=== PATIENT | female | born 1990 | race Caucasian/White ===

== ENCOUNTER 2021-05-29 14:21 | Outpatient (CLI) | payer SELFPAY ==
--- NOTE | 2021-05-29 14:29 | MM_ITS ---
WS: [id number] DIAGNOSTIC BILATERAL DIGITAL MAMMOGRAM WITH CAD LEFT breast ultrasound, limited HISTORY: HX OF DIMPLING OF BREAST SKIN COMPARISON: None available. TECHNIQUE: Bilateral craniocaudad, mediolateral oblique, and mediolateral views are submitted. RIGHT CC and MLO spot. Computer aided detection utilized. Breast composition: There are scattered areas of fibroglandular density. No persistent soft tissue ab normality. There is no distortion or soft tissue thickening or trabecular thickening. No nipple retra ction. LEFT breast ultrasound, limited. Ultrasound is directed to the areas of clinical concern as indicated by the patient. At 9:00 normal s oft tissue. No skin thickening. At 1:00 and 3:00 there is no abnormality in the soft tissues. MM/[place] [id number] IMPRESSION: BI-RADS: 2-Benign FOLLOW UP: Age 39 By imaging no abnormality is noted within the LEFT breast.
--- NOTE | 2021-05-29 15:23 | US_ITS ---
WS: [id number] DIAGNOSTIC BILATERAL DIGITAL MAMMOGRAM WITH CAD LEFT breast ultrasound, limited HISTORY: HX OF DIMPLING OF BREAST SKIN COMPARISON: None available. TECHNIQUE: Bilateral craniocaudad, mediolateral oblique, and mediolateral views are submitted. RIGHT CC and MLO spot. Computer aided detection utilized. Breast composition: There are scattered areas of fibroglandular density. No persistent soft tissue ab normality. There is no distortion or soft tissue thickening or trabecular thickening. No nipple retra ction. LEFT breast ultrasound, limited. Ultrasound is directed to the areas of clinical concern as indicated by the patient. At 9:00 normal s oft tissue. No skin thickening. At 1:00 and 3:00 there is no abnormality in the soft tissues. US/US breast LT limited* [id number] IMPRESSION: BI-RADS: 2-Benign FOLLOW UP: Age 39 By imaging no abnormality is noted within the LEFT breast.
== END 2021-05-29 14:22 | disposition home or self-care (01) ==
LOC: RADSHAW 14:25
PROVIDERS: PCP Family Medicine; Visit Provider Family Medicine
DX: Z87.2 Personal history of diseases of the skin and subcutaneous tissue (principal)
CPT/HCPCS: 76642; 77066

== ENCOUNTER → 2022-09-08 19:10 | Outpatient (BNVA) | payer SELFPAY | PROVIDERS: PCP Family Medicine; Visit Provider Registered Nurse Neonatal Intensive Care | DX: R39.9 Unspecified symptoms and signs involving the genitourinary system (principal) | CPT/HCPCS: 81000; 87086 ==

== ENCOUNTER → 2024-02-22 16:33 | Outpatient (BNVA) | payer MEDICAID, SELFPAY | PROVIDERS: PCP Family Medicine; Visit Provider Registered Nurse Neonatal Intensive Care | DX: M79.671 Pain in right foot (principal) | CPT/HCPCS: 73630 ==

== ENCOUNTER 2024-06-04 15:26 | Emergency (ER) | payer MEDICAID, SELFPAY ==
[2024-06-04 15:44] VITALS: BP 152/94; PULSE 89; RESP 16; TEMP 36.7; O2SAT 98; BMI 39.2
--- NOTE | 2024-06-04 16:29 | USR_ITS ---
PROCEDURE INFORMATION: Exam: US Abdomen, Limited; Right Upper Quadrant Exam date and time: 06/04/2024 4:37 PM Age: 33 years old Clinical indication: Abdominal pain; Additional info: Intermittent sharp ruq pain TECHNIQUE: Imaging protocol: Real time ultrasound of the abdomen with image documentation. Limited exam focused on the right upper quadrant. COMPARISON: No relevant prior studies available. FINDINGS: Liver: Hepatomegaly with the liver measuring up to 21 cm. Increased echogenicity of the liver which can be seen in the setting of diffuse hepatocellular disease most commonly hepatic steatosis. Gallbladder: There is a small nonmobile echogenic foci with broad-base along the gallbladder wall which may be related to a small gallbladder polyp measuring 3 mm. Based on guidelines this will require no further follow up. No mobile gallstones or gallbladder wall thickening or pericholecystic fluid. Biliary ducts: Normal. No stones. No dilation. Pancreas: Visualized pancreas is unremarkable. Right kidney: Normal. No mass. No hydronephrosis. US/US abdomen limited [id number] IMPRESSION: As above.
--- NOTE | 2024-06-04 16:30 | ED_ITS ---
Documented by User: SILVINA Riddle STDNT 06/05/24 12:50 HPI - Abdominal Pain 2 General: Chief Complaint: Abdominal Pain Stated Complaint: right side pain ribs to hips Time Seen by Provider: 06/04/24 16:06 History of Present Illness: Xenia is a 33-year-old female with past medical history of hypertension presenting today for 2 weeks of constant right upper quadrant pain that becomes significantly worse with meals. Has also been experiencing sensation of tightness and pressure in the right upper quadrant that radiates into the right lower quadrant. The pain and discomfort worsen with bowel movements. Denies fevers, chills. Has been having waves of nausea but no vomiting. PCP started Protonix several days ago which has not helped with the pain that seems to be helping with diarrhea. History of tubal, hysterectomy for heavy menstrual bleeding. Associated Symptoms: Denies chills, coffee ground emesis, fever(s) and hematemesis Related Data Home Medications Medication Instructions Recorded Confirmed fluoxetine 20 mg capsule 20 mg PO DAILY 06/04/24 06/04/24 hydrochlorothiazide 12.5 mg capsule 12.5 mg PO DAILY 06/04/24 06/04/24 metoprolol succinate 25 mg 25 mg PO DAILY 06/04/24 06/04/24 tablet,extended release 24 hr omeprazole 20 mg capsule,delayed 20 mg PO DAILY 06/04/24 06/04/24 release pantoprazole 40 mg tablet,delayed 40 mg PO BID 06/04/24 06/04/24 release Previous Rx's Medication Instructions Recorded ondansetron 4 mg disintegrating 4 mg PO Q8H PRN nausea and 06/04/24 tablet vomiting #10 tabs sucralfate 1 gram tablet (Carafate) 1 g PO TID 4 weeks #84 tabs 06/04/24 tramadol 50 mg tablet 50 mg PO Q8H PRN pain #10 tabs 06/04/24 Allergies Allergy/AdvReac Type Severity Reaction Status Date / Time metronidazole Allergy ALGY-Anaphy Verified 06/04/24 15:50 laxis Review of Systems 2 Const: Denies: fever(s) or chills Resp: Denies: dyspnea GI: Reports: abdominal pain; Denies: hematemesis or coffee ground emesis PFSH ED 2 PFSH: Social History Smoking and tobacco/nicotine status: never used tobacco/nicotine Physical Exam 2 Const: COMMON NORMALS: no acute distress GENERAL APPEARANCE: cooperative and comfortable HENMT: COMMON NORMALS: normocephalic and atraumatic HEAD & SCALP: n ormocephalic and atraumatic Cardio: COMMON NORMALS: regular rate and regular rhythm RATE: regular rate RHYTHM: regular rhythm GI: COMMON NORMALS: Normal to inspection, nondistended, normoactive bowel sounds present and Soft to palpation AUSCULTATION: Yes normoactive bowel sounds PALPATION: Yes Soft to palpation, Yes Tenderness to palpation present (GI) (epigastric and RUQ tenderness ) Details: RUQ and No Guarding due to palpation present (GI) Course 2 Vital Signs: Vital signs: Vital Signs Temperature 98.0 F 06/04/24 15:44 Pulse Rate 78 06/04/24 19:28 Respiratory Rate 18 06/04/24 19:28 Blood Pressure 128/79 06/04/24 19:28 Pulse Oximetry 97 06/04/24 19:28 Oxygen Delivery Me thod Room Air 06/04/24 15:44 MDM - Abdominal Pain Medical Decision Making Xenia is a 33-year-old female with past medical history of hypertension presenting today for 2 weeks of constant right upper quadrant pain that worsens after meals. Vitals unremarkable, afebrile. Patient has significant tenderness over epigastrium and RUQ. RUQ U/S Lab Data 06/04/24 16:40 06/04/24 16:40 Labs/Radiology: Radiology Impressions Abdomen Ultrasound 06/04/24 16:29 IMPRESSION: As above. Abdomen/Pelvis CT 06/04/24 16:47 IMPRESSION: No acute findings. Laboratory Results WBC 10.01 10^3/uL (3.29-11.43) 06/04/24 16:40 RBC 4.38 10^6/uL (3.85-5.65) 06/04/24 16:40 Hgb 13.00 g/dL (11.27-16.99) 06/04/24 16:40 Hct 39.5 % (36-47) 06/04/24 16:40 MCV 90.2 fl (85-98) 06/04/24 16:40 MCH 29.7 pg (27-33) 06/04/24 16:40 MCHC 32.9 g/dL (30-55) 06/04/24 16:40 RDW 13.1 % (12.1-15.1) 06/04/24 16:40 Plt Count 289 10^3/cmm (157-399) 06/04/24 16:40 MPV 8.6 fL (7.4-10.4) 06/04/24 16:40 Neut % (Auto) 75.5 % 06/04/24 16:40 Lymph % (Auto) 18.7 % 06/04/24 16:40 [place] % (Auto) 4.2 % 06/04/24 16:40 Eos % (Auto) 1.1 % 06/04/24 16:40 Baso % (Auto) 0.3 % 06/04/24 16:40 Neut # (Auto) 7.56 10^3/uL (1.8-7.7) 06/04/24 16:40 Lymph # (Auto) 1.9 10^3/uL (0.8-4.8) 06/04/24 16:40 [place] # (Auto) 0.4 10^3/uL (0.2-0.9) 06/04/24 16:40 Eos # (Auto) 0.1 10^3/uL (0.0-0.8) 06/04/24 16:40 Baso # (Auto) 0.0 10^3/uL (0.0-0.1) 06/04/24 16:40 Nucleated RBC % (auto) 0 % 06/04/24 16:40 Nucleated RBCs # 0.0 /100WBC 06/04/24 16:40 Sodium 138 mmol/L (136-145) 06/04/24 16:40 Potassium 3.8 mmol/L (3.5-5.1) 06/04/24 16:40 Chloride 103 mmol/L (98-107) 06/04/24 16:40 Carbon Dioxide 23 mmol/L (22-29) 06/04/24 16:40 Anion Gap 15.8 (5-19) 06/04/24 16:40 BUN 14 mg/dL (6-20) 06/04/24 16:40 Creatinine 0.7 mg/dL (0.5-0.9) 06/04/24 16:40 GFR Calculation 95.8 mL/min (90-130) 06/04/24 16:40 Glucose 113 mg/dL (65-115) 06/04/24 16:40 Calculated Osmolality 287 mOsm/kg (285-295) 06/04/24 16:40 Calcium 9.1 mg/dL (8.5-10.5) 06/04/24 16:40 Total Bilirubin 0.2 mg/dL (0.15-1.2) 06/04/24 16:40 AST 13 U/L (0-32) 06/04/24 16:40 ALT 15 U/L (0-33) 06/04/24 16:40 Alkaline Phosphatase 93 U/L (35-105) 06/04/24 16:40 Total Protein 7.2 g/dL (6.6-8.7) 06/04/24 16:40 Albumin 4.2 g/dL (3.5-5.2) 06/04/24 16:40 Globulin 3.0 g/dL (1.3-4.6) 06/04/24 16:40 Lipase 27 U/L (13-60) 06/04/24 16:40 HCG, Qual Negative (Negative) 06/04/24 16:40 Urine Color Yellow (Yellow) 06/04/24 15:55 Urine Appearance Cloudy (CLEAR) A 06/04/24 15:55 Urine pH 5.5 (5-7) 06/04/24 15:55 Ur Specific [place] 1.027 (1.005-1.030) 06/04/24 15:55 Urine Protein Trace (Negative) A 06/04/24 15:55 Urine Glucose (UA) Negative (Normal) 06/04/24 15:55 Urine Ketones Trace (Negative) 06/04/24 15:55 Urine Blood Negative (Negative) 06/04/24 15:55 Urine Nitrate Negative (Negative) 06/04/24 15:55 Urine Bilirubin Negative (Negative) 06/04/24 15:55 Urine Urobilinogen 0.2 mg/dL (Negative) 06/04/24 15:55 Ur Leukocyte Esterase Negative (Negative) 06/04/24 15:55 Urine RBC 0-2 /hpf (0-2) 06/04/24 15:55 Urine WBC 6-10 /hpf (0-5) 06/04/24 15:55 Ur Squamous Epith Cells 11-20 /hpf (0-5) H 06/04/24 15:55 Amorphous Sediment Not Reportable 06/04/24 15:55 Urine Bacteria 4+ /hpf (NONE) H 06/04/24 15:55 Hyaline Casts 2.46 /lpf 06/04/24 15:55 Discharge Plan Discharge Patient Disposition: Home Clinical Impression: Abdominal pain Condition: Stable Prescriptions: New sucralfate [Carafate] 1 gram tablet 1 g PO TID 28 Days Qty: 84 0RF Rx Instructions: with meals tramadol 50 mg tablet 50 mg PO Q8H PRN (Reason: pain) Qty: 10 0RF ondansetron 4 mg tablet,disintegrating 4 mg PO Q8H PRN (Reason: nausea and vomiting) Qty: 10 0RF No Action pantoprazole 40 mg tablet,delayed release (DR/EC) 40 mg PO BID hydrochlorothiazide 12.5 mg capsule 12.5 mg PO DAILY omeprazole 20 mg capsule,delayed release(DR/EC) 20 mg PO DAILY metoprolol succinate 25 mg tablet extended release 24 hr 25 mg PO DAILY fluoxetine 20 mg capsule 20 mg PO DAILY Discharge Orders: Discharge ED (Routine); Ordered 06/04/24 Ordered By: Charisse Garcia Referrals: Jamal Hanks MD [Primary Care Provider] - Discharge Diet: Advance as tolerated Discharge Activity: Increase activity as tolerated Patient Instructions: Abdominal Pain (ED), Opioid Safety, Pain Management Activity Restrictions/Additional Instructions: Thank you for choosing [facility] for your healthcare needs today. Please realize this is an emergency room and that we are providing you with a medical screening exam and this may not be complete and all inclusive of all the testing and or work up that you may need to determine your ailment or severity of your illness. You have been screened and evaluated and felt safe for discharge. Health conditions do change or evolve sometimes and as such it is important that you follow up with your Primary Doctor to be re checked, 3-5 days is a general good time frame for follow up. You are always welcome to return to the ED for re assessment if your symptoms are worsening or you have new concerns Interventions: ED Discharge Assessment Last Done: 06/04/24 19:28 Discharge Date/Time: 06/04/24 19:29 Coding Level of Care Code ED Drug Abuse Program Coordinator for Chg Fwd Documented by User: Varun Cottrell MD 06/04/24 17:50 HPI - Abdominal Pain 2 General: Chief Complaint: Abdominal Pain Stated Complaint: right side pain ribs to hips Time Seen by Provider: 06/04/24 16:06 Related Data Home Medications Medication Instructions Recorded Confirmed fluoxetine 20 mg capsule 20 mg PO DAILY 06/04/24 06/04/24 hydrochlorothiazide 12.5 mg capsule 12.5 mg PO DAILY 06/04/24 06/04/24 metoprolol succinate 25 mg 25 mg PO DAILY 06/04/24 06/04/24 tablet,extended release 24 hr omeprazole 20 mg capsule,delayed 20 mg PO DAILY 06/04/24 06/04/24 release pantoprazole 40 mg tablet,delayed 40 mg PO BID 06/04/24 06/04/24 release Previous Rx's Medication Instructions Recorded ondansetron 4 mg disintegrating 4 mg PO Q8H PRN nausea and 06/04/24 tablet vomiting #10 tabs sucralfate 1 gram tablet (Carafate) 1 g PO TID 4 weeks #84 tabs 06/04/24 tramadol 50 mg tablet 50 mg PO Q8H PRN pain #10 tabs 06/04/24 Allergies Allergy/AdvReac Type Severity Reaction Status Date / Time metronidazole Allergy ALGY-Anaphy Verified 06/04/24 15:50 laxis PFS ED 2 PFSH: Social History Smoking and tobacco/nicotine status: never used tobacco/nicotine Course 2 Vital Signs: Vital signs: Vital Signs Temperature 98.0 F 06/04/24 15:44 Pulse Rate 78 06/04/24 19:28 Respiratory Rate 18 06/04/24 19:28 Blood Pressure 128/79 06/04/24 19:28 Pulse Oximetry 97 06/04/24 19:28 Oxygen Delivery Me thod Room Air 06/04/24 15:44 MDM - Abdominal Pain Medical Decision Making Xenia is a 33-year-old female with past medical history of hypertension presenting today for 2 weeks of constant right upper quadrant pain that worsens after meals. Vitals unremarkable, afebrile. Patient has significant tenderness over epigastrium and RUQ. RUQ U/S Patient's pending CT scan of her abdomen care turned over to Dr. Arthur Lab Data 06/04/24 16:40 06/04/24 16:40 Labs/Radiology: Radiology Impressions Abdomen Ultrasound 06/04/24 16:29 IMPRESSION: As above. Abdomen/Pelvis CT 06/04/24 16:47 IMPRESSION: No acute findings. Laboratory Results WBC 10.01 10^3/uL (3.29-11.43) 06/04/24 16:40 RBC 4.38 10^6/uL (3.85-5.65) 06/04/24 16:40 Hgb 13.00 g/dL (11.27-16.99) 06/04/24 16:40 Hct 39.5 % (36-47) 06/04/24 16:40 MCV 90.2 fl (85-98) 06/04/24 16:40 MCH 29.7 pg (27-33) 06/04/24 16:40 MCHC 32.9 g/dL (30-55) 06/04/24 16:40 RDW 13.1 % (12.1-15.1) 06/04/24 16:40 Plt Count 289 10^3/cmm (157-399) 06/04/24 16:40 MPV 8.6 fL (7.4-10.4) 06/04/24 16:40 Neut % (Auto) 75.5 % 06/04/24 16:40 Lymph % (Auto) 18.7 % 06/04/24 16:40 [place] % (Auto) 4.2 % 06/04/24 16:40 Eos % (Auto) 1.1 % 06/04/24 16:40 Baso % (Auto) 0.3 % 06/04/24 16:40 Neut # (Auto) 7.56 10^3/uL (1.8-7.7) 06/04/24 16:40 Lymph # (Auto) 1.9 10^3/uL (0.8-4.8) 06/04/24 16:40 [place] # (Auto) 0.4 10^3/uL (0.2-0.9) 06/04/24 16:40 Eos # (Auto) 0.1 10^3/uL (0.0-0.8) 06/04/24 16:40 Baso # (Auto) 0.0 10^3/uL (0.0-0.1) 06/04/24 16:40 Nucleated RBC % (auto) 0 % 06/04/24 16:40 Nucleated RBCs # 0.0 /100WBC 06/04/24 16:40 Sodium 138 mmol/L (136-145) 06/04/24 16:40 Potassium 3.8 mmol/L (3.5-5.1) 06/04/24 16:40 Chloride 103 mmol/L (98-107) 06/04/24 16:40 Carbon Dioxide 23 mmol/L (22-29) 06/04/24 16:40 Anion Gap 15.8 (5-19) 06/04/24 16:40 BUN 14 mg/dL (6-20) 06/04/24 16:40 Creatinine 0.7 mg/dL (0.5-0.9) 06/04/24 16:40 GFR Calculation 95.8 mL/min (90-130) 06/04/24 16:40 Glucose 113 mg/dL (65-115) 06/04/24 16:40 Calculated Osmolality 287 mOsm/kg (285-295) 06/04/24 16:40 Calcium 9.1 mg/dL (8.5-10.5) 06/04/24 16:40 Total Bilirubin 0.2 mg/dL (0.15-1.2) 06/04/24 16:40 AST 13 U/L (0-32) 06/04/24 16:40 ALT 15 U/L (0-33) 06/04/24 16:40 Alkaline Phosphatase 93 U/L (35-105) 06/04/24 16:40 Total Protein 7.2 g/dL (6.6-8.7) 06/04/24 16:40 Albumin 4.2 g/dL (3.5-5.2) 06/04/24 16:40 Globulin 3.0 g/dL (1.3-4.6) 06/04/24 16:40 Lipase 27 U/L (13-60) 06/04/24 16:40 HCG, Qual Negative (Negative) 06/04/24 16:40 Urine Color Yellow (Yellow) 06/04/24 15:55 Urine Appearance Cloudy (CLEAR) A 06/04/24 15:55 Urine pH 5.5 (5-7) 06/04/24 15:55 Ur Specific [place] 1.027 (1.005-1.030) 06/04/24 15:55 Urine Protein Trace (Negative) A 06/04/24 15:55 Urine Glucose (UA) Negative (Normal) 06/04/24 15:55 Urine Ketones Trace (Negative) 06/04/24 15:55 Urine Blood Negative (Negative) 06/04/24 15:55 Urine Nitrate Negative (Negative) 06/04/24 15:55 Urine Bilirubin Negative (Negative) 06/04/24 15:55 Urine Urobilinogen 0.2 mg/dL (Negative) 06/04/24 15:55 Ur Leukocyte Esterase Negative (Negative) 06/04/24 15:55 Urine RBC 0-2 /hpf (0-2) 06/04/24 15:55 Urine WBC 6-10 /hpf (0-5) 06/04/24 15:55 Ur Squamous Epith Cells 11-20 /hpf (0-5) H 06/04/24 15:55 Amorphous Sediment Not Reportable 06/04/24 15:55 Urine Bacteria 4+ /hpf (NONE) H 06/04/24 15:55 Hyaline Casts 2.46 /lpf 06/04/24 15:55 No radiology studies performed this visit Discharge Plan Discharge Patient Disposition: Home Clinical Impression: Abdominal pain Condition: Stable Prescriptions: New sucralfate [Carafate] 1 gram tablet 1 g PO TID 28 Days Qty: 84 0RF Rx Instructions: with meals tramadol 50 mg tablet 50 mg PO Q8H PRN (Reason: pain) Qty: 10 0RF ondansetron 4 mg tablet,disintegrating 4 mg PO Q8H PRN (Reason: nausea and vomiting) Qty: 10 0RF No Action pantoprazole 40 mg tablet,delayed release (DR/EC) 40 mg PO BID hydrochlorothiazide 12.5 mg capsule 12.5 mg PO DAILY omeprazole 20 mg capsule,delayed release(DR/EC) 20 mg PO DAILY metoprolol succinate 25 mg tablet extended release 24 hr 25 mg PO DAILY fluoxetine 20 mg capsule 20 mg PO DAILY Discharge Orders: Discharge ED (Routine); Ordered 06/04/24 Ordered By: Charisse Garcia Referrals: Jamal Hanks MD [Primary Care Provider] - Discharge Diet: Advance as tolerated Discharge Activity: Increase activity as tolerated Patient Instructions: Abdominal Pain (ED), Opioid Safety, Pain Management Activity Restrictions/Additional Instructions: Thank you for choosing [facility] for your healthcare needs today. Please realize this is an emergency room and that we are providing you with a medical screening exam and this may not be complete and all inclusive of all the testing and or work up that you may need to determine your ailment or severity of your illness. You have been screened and evaluated and felt safe for discharge. Health conditions do change or evolve sometimes and as such it is important that you follow up with your Primary Doctor to be re checked, 3-5 days is a general good time frame for follow up. You are always welcome to return to the ED for re assessment if your symptoms are worsening or you have new concerns Interventions: ED Discharge Assessment Last Done: 06/04/24 19:28 Discharge Date/Time: 06/04/24 19:29 Coding Level of Care Code ED Drug Abuse Program Coordinator for Chg Fwd Documented by User: Charisse Garcia MD 06/04/24 19:52 HPI - Abdominal Pain 2 General: Chief Complaint: Abdominal Pain Stated Complaint: right side pain ribs to hips Time Seen by Provider: 06/04/24 16:06 Related Data Home Medications Medication Instructions Recorded Confirmed fluoxetine 20 mg capsule 20 mg PO DAILY 06/04/24 06/04/24 hydrochlorothiazide 12.5 mg capsule 12.5 mg PO DAILY 06/04/24 06/04/24 metoprolol succinate 25 mg 25 mg PO DAILY 06/04/24 06/04/24 tablet,extended release 24 hr omeprazole 20 mg capsule,delayed 20 mg PO DAILY 06/04/24 06/04/24 release pantoprazole 40 mg tablet,delayed 40 mg PO BID 06/04/24 06/04/24 release Previous Rx's Medication Instructions Recorded ondansetron 4 mg disintegrating 4 mg PO Q8H PRN nausea and 06/04/24 tablet vomiting #10 tabs sucralfate 1 gram tablet (Carafate) 1 g PO TID 4 weeks #84 tabs 06/04/24 tramadol 50 mg tablet 50 mg PO Q8H PRN pain #10 tabs 06/04/24 Allergies Allergy/AdvReac Type Severity Reaction Status Date / Time metronidazole Allergy ALGY-Anaphy Verified 06/04/24 15:50 laxis PFSH ED 2 PFSH: Social History Smoking and tobacco/nicotine status: never used tobacco/nicotine Course 2 Vital Signs: Vital signs: Vital Signs Temperature 98.0 F 06/04/24 15:44 Pulse Rate 78 06/04/24 19:28 Respiratory Rate 18 06/04/24 19:28 Blood Pressure 128/79 06/04/24 19:28 Pulse Oximetry 97 06/04/24 19:28 Oxygen Delivery Me thod Room Air 06/04/24 15:44 MDM - Abdominal Pain Medical Decision Making Xenia is a 33-year-old female with past medical history of hypertension presenting today for 2 weeks of constant right upper quadrant pain that worsens after meals. Vitals unremarkable, afebrile. Patient has significant tenderness over epigastrium and RUQ. RUQ U/S Patient's pending CT scan of her abdomen care turned over to Dr. Arthur CT scan showed no acute process. Ultrasound was negative as well. I discussed findings with the patient. Assessment and plan: Abdominal pain - Discharged home - Discussed plan with patient. Answered any questions. - Evaluation and treatment of this problem were appropriate in the emergency setting. Lab Data 06/04/24 16:40 06/04/24 16:40 Labs/Radiology: Radiology Impressions Abdomen Ultrasound 06/04/24 16:29 IMPRESSION: As above. Abdomen/Pelvis CT 06/04/24 16:47 IMPRESSION: No acute findings. Laboratory Results WBC 10.01 10^3/uL (3.29-11.43) 06/04/24 16:40 RBC 4.38 10^6/uL (3.85-5.65) 06/04/24 16:40 Hgb 13.00 g/dL (11.27-16.99) 06/04/24 16:40 Hct 39.5 % (36-47) 06/04/24 16:40 MCV 90.2 fl (85-98) 06/04/24 16:40 MCH 29.7 pg (27-33) 06/04/24 16:40 MCHC 32.9 g/dL (30-55) 06/04/24 16:40 RDW 13.1 % (12.1-15.1) 06/04/24 16:40 Plt Count 289 10^3/cmm (157-399) 06/04/24 16:40 MPV 8.6 fL (7.4-10.4) 06/04/24 16:40 Neut % (Auto) 75.5 % 06/04/24 16:40 Lymph % (Auto) 18.7 % 06/04/24 16:40 [place] % (Auto) 4.2 % 06/04/24 16:40 Eos % (Auto) 1.1 % 06/04/24 16:40 Baso % (Auto) 0.3 % 06/04/24 16:40 Neut # (Auto) 7.56 10^3/uL (1.8-7.7) 06/04/24 16:40 Lymph # (Auto) 1.9 10^3/uL (0.8-4.8) 06/04/24 16:40 [place] # (Auto) 0.4 10^3/uL (0.2-0.9) 06/04/24 16:40 Eos # (Auto) 0.1 10^3/uL (0.0-0.8) 06/04/24 16:40 Baso # (Auto) 0.0 10^3/uL (0.0-0.1) 06/04/24 16:40 Nucleated RBC % (auto) 0 % 06/04/24 16:40 Nucleated RBCs # 0.0 /100WBC 06/04/24 16:40 Sodium 138 mmol/L (136-145) 06/04/24 16:40 Potassium 3.8 mmol/L (3.5-5.1) 06/04/24 16:40 Chloride 103 mmol/L (98-107) 06/04/24 16:40 Carbon Dioxide 23 mmol/L (22-29) 06/04/24 16:40 Anion Gap 15.8 (5-19) 06/04/24 16:40 BUN 14 mg/dL (6-20) 06/04/24 16:40 Creatinine 0.7 mg/dL (0.5-0.9) 06/04/24 16:40 GFR Calculation 95.8 mL/min (90-130) 06/04/24 16:40 Glucose 113 mg/dL (65-115) 06/04/24 16:40 Calculated Osmolality 287 mOsm/kg (285-295) 06/04/24 16:40 Calcium 9.1 mg/dL (8.5-10.5) 06/04/24 16:40 Total Bilirubin 0.2 mg/dL (0.15-1.2) 06/04/24 16:40 AST 13 U/L (0-32) 06/04/24 16:40 ALT 15 U/L (0-33) 06/04/24 16:40 Alkaline Phosphatase 93 U/L (35-105) 06/04/24 16:40 Total Protein 7.2 g/dL (6.6-8.7) 06/04/24 16:40 Albumin 4.2 g/dL (3.5-5.2) 06/04/24 16:40 Globulin 3.0 g/dL (1.3-4.6) 06/04/24 16:40 Lipase 27 U/L (13-60) 06/04/24 16:40 HCG, Qual Negative (Negative) 06/04/24 16:40 Urine Color Yellow (Yellow) 06/04/24 15:55 Urine Appearance Cloudy (CLEAR) A 06/04/24 15:55 Urine pH 5.5 (5-7) 06/04/24 15:55 Ur Specific [place] 1.027 (1.005-1.030) 06/04/24 15:55 Urine Protein Trace (Negative) A 06/04/24 15:55 Urine Glucose (UA) Negative (Normal) 06/04/24 15:55 Urine Ketones Trace (Negative) 06/04/24 15:55 Urine Blood Negative (Negative) 06/04/24 15:55 Urine Nitrate Negative (Negative) 06/04/24 15:55 Urine Bilirubin Negative (Negative) 06/04/24 15:55 Urine Urobilinogen 0.2 mg/dL (Negative) 06/04/24 15:55 Ur Leukocyte Esterase Negative (Negative) 06/04/24 15:55 Urine RBC 0-2 /hpf (0-2) 06/04/24 15:55 Urine WBC 6-10 /hpf (0-5) 06/04/24 15:55 Ur Squamous Epith Cells 11-20 /hpf (0-5) H 06/04/24 15:55 Amorphous Sediment Not Reportable 06/04/24 15:55 Urine Bacteria 4+ /hpf (NONE) H 06/04/24 15:55 Hyaline Casts 2.46 /lpf 06/04/24 15:55 Discharge Plan Discharge Patient Disposition: Home Clinical Impression: Abdominal pain Condition: Stable Prescriptions: New sucralfate [Carafate] 1 gram tablet 1 g PO TID 28 Days Qty: 84 0RF Rx Instructions: with meals tramadol 50 mg tablet 50 mg PO Q8H PRN (Reason: pain) Qty: 10 0RF ondansetron 4 mg tablet,disintegrating 4 mg PO Q8H PRN (Reason: nausea and vomiting) Qty: 10 0RF No Action pantoprazole 40 mg tablet,delayed release (DR/EC) 40 mg PO BID hydrochlorothiazide 12.5 mg capsule 12.5 mg PO DAILY omeprazole 20 mg capsule,delayed release(DR/EC) 20 mg PO DAILY metoprolol succinate 25 mg tablet extended release 24 hr 25 mg PO DAILY fluoxetine 20 mg capsule 20 mg PO DAILY Discharge Orders: Discharge ED (Routine); Ordered 06/04/24 Ordered By: Charisse Garcia Referrals: Jamal Hanks MD [Primary Care Provider] - Discharge Diet: Advance as tolerated Discharge Activity: Increase activity as tolerated Patient Instructions: Abdominal Pain (ED), Opioid Safety, Pain Management Activity Restrictions/Additional Instructions: Thank you for choosing [facility] for your healthcare needs today. Please realize this is an emergency room and that we are providing you with a medical screening exam and this may not be complete and all inclusive of all the testing and or work up that you may need to determine your ailment or severity of your illness. You have been screened and evaluated and felt safe for discharge. Health conditions do change or evolve sometimes and as such it is important that you follow up with your Primary Doctor to be re checked, 3-5 days is a general good time frame for follow up. You are always welcome to return to the ED for re assessment if your symptoms are worsening or you have new concerns Interventions: ED Discharge Assessment Last Done: 06/04/24 19:28 Discharge Date/Time: 06/04/24 19:29 Coding Level of Care Code ED Drug Abuse Program Coordinator for Linda Cardona
[2024-06-04 16:37] LABS: Bilirubin Urine Negative (Negative); Blood Urine Negative (Negative); Glucose Urine UA Negative (Normal); Ketones Urine Trace (Negative); Leukocyte Esterase Urine Negative (Negative); Nitrate Urine Negative (Negative); Protein Urine Trace (Negative); Specific Gravity, Urine 1.027 (1.005-1.030); Urine Appearance Cloudy (CLEAR); Urine Color Yellow (Yellow); Urobilinogen Urine 0.2 mg/dL (Negative); pH Urine 5.5 (5-7)
[2024-06-04 16:43] LABS: Add Urine Microscopic? YES; Bacteria Urine 4+ /hpf; Hyaline Casts Urine 2.46 /lpf; RBC Urine 0-2 /hpf (0-2)
--- NOTE | 2024-06-04 16:47 | CTR_ITS ---
PROCEDURE INFORMATION: Exam: CT Abdomen And Pelvis With Contrast Exam date and time: 06/04/2024 5:44 PM Age: 33 years old Clinical indication: Abdominal pain; Generalized; Prior surgery; Surgery date: 6+ months; Surgery type: Partial hysterectomy; Additional info: Abd pain TECHNIQUE: Imaging protocol: Computed tomography of the abdomen and pelvis with contrast. Radiation optimization: All CT scans at this facility use at least one of these dose optimization techniques: automated exposure control; mA and/or kV adjustment per patient size (includes targeted exams where dose is matched to clinical indication); or iterative reconstruction. Contrast material: OMNIPAQUE 350; Contrast volume: 100 ml; Contrast route: INTRAVENOUS (IV); COMPARISON: US abdomen limited [id number] 06/04/2024 4:37 PM RADIATION DOSE METRICS: Total DLP (mGy-cm): 1009.33 FINDINGS: Lungs: Lung bases are clear. Liver: The liver is normal. Gallbladder and biliary ducts: The gallbladder is normal. There is no biliary dilation. Pancreas: The pancreas is unremarkable. Spleen: The spleen is unremarkable. Adrenal glands: The adrenal glands are unremarkable. Kidneys and ureters: The kidneys are unremarkable. No hydronephrosis or stones. No ureteral dilation. Stomach and bowel: The stomach is unremarkable. The small bowel is nondilated. The colon is unremarkable. Appendix: The appendix is normal. Intraperitoneal space: Trace simple pelvic free fluid may be physiologic. There is no free air. Vasculature: The aorta is unremarkable. There is no aneurysm. The portal, splenic and superior mesenteric veins are patent. Lymph nodes: There is no lymphadenopathy in the retroperitoneum, mesentery, pelvis or inguinal regions. Urinary bladder: The urinary bladder is unremarkable. Reproductive: The uterus is absent. There is no adnexal mass or large cyst. Bones/joints: Bones are unremarkable. Soft tissues: The abdominal wall is intact. CT/CT abdomen pelvis w con* [id number] IMPRESSION: No acute findings.
[2024-06-04 16:53] LABS: Basophils % 0.3 %; Eosinophils # 0.1 10^3/uL (0.0-0.8); Eosinophils % 1.1 %; Hematocrit 39.5 % (36-47); Lymphocytes # 1.9 10^3/uL (0.8-4.8); Lymphocytes % 18.7 %; Mean Corpuscular HGB Conc 32.9 g/dL (30-55); Mean Corpuscular Hemoglobin 29.7 pg (27-33); Mean Corpuscular Volume 90.2 fl (85-98); Mean Platelet Volume 8.6 fL (7.4-10.4); Monocytes # 0.4 10^3/uL (0.2-0.9); Monocytes % 4.2 %; Neutrophils # 7.56 10^3/uL (1.8-7.7); Neutrophils % 75.5 %; Nucleated Red Blood Cells % 0 %; Platelet Count 289 10^3/cmm (157-399); Red Blood Count 4.38 10^6/uL (3.85-5.65); Red Cell Distribution Width 13.1 % (12.1-15.1); White Blood Count 10.01 10^3/uL (3.29-11.43)
[2024-06-04 17:02] LABS: UA Slide Review UA Slide Review Perf
[2024-06-04] MEDS: ondansetron 2 mg/ML SDV 2 mL 4 MG IVP (17:02)
[2024-06-04] MEDS: morphine 4 mg/mL SDV 1 mL IVP (17:03)
[2024-06-04 17:06] LABS: Alanine Aminotransferase 15 U/L (0-33); Albumin Level 4.2 g/dL (3.5-5.2); Alkaline Phosphatase 93 U/L (35-105); Anion Gap 15.8 (5-19); Aspartate Amino Transferase 13 U/L (0-32); Blood Urea Nitrogen 14 mg/dL (6-20); Calcium 9.1 mg/dL (8.5-10.5); Carbon Dioxide 23 mmol/L (22-29); Chloride 103 mmol/L (98-107); Creatinine Clr Calc Pharmacy 142.4245; Glomerular Filtration Rate 95.8 mL/min (90-130); Glucose 113 mg/dL (65-115); Lipase 27 U/L (13-60); Osmolality Calculated 287 mOsm/kg (285-295); Potassium 3.8 mmol/L (3.5-5.1); Sodium 138 mmol/L (136-145); Total Bilirubin 0.2 mg/dL (0.15-1.2); Total Protein 7.2 g/dL (6.6-8.7)
[2024-06-04 17:18] LABS: HCG, Serum Qual Negative (Negative)
[2024-06-04] MEDS: iohexol 350 mg/mL 500 mL Btl (per mL) IV (17:46)
[2024-06-04 18:26] VITALS: BP 142/69; PULSE 77; O2SAT 96
[2024-06-04 19:28] VITALS: BP 128/79; PULSE 78; RESP 18; O2SAT 97
== END 2024-06-04 19:29 | disposition home or self-care (01) ==
PROVIDERS: Emergency Medicine; Emergency Provider Emergency Medicine; PCP Family Medicine
DX: R10.11 Right upper quadrant pain (principal)
CPT/HCPCS: 36415; 74177; 76705; 80053; 81001; 83690; 84703; 85025; 96374; 96375; 99285; J2270; J2405